=== PATIENT | male | born 1975 | race Caucasian/White ===

== ENCOUNTER 2018-09-18 10:01 | Emergency (ER) | payer SELFPAY ==
[~2018-09-18] VITALS: Ht 172.7 cm; Wt 93.6 kg
[2018-09-18 10:02] VITALS: Ht 172.7 cm; Wt 93.6 kg
[2018-09-18] MEDS ORDERED: CEFAZOLIN 1 GM INJ IM ONE (10:30)
[2018-09-18] MEDS ORDERED: LIDOCAINE 1% (MDV) 20 ML INJ SC ONE (10:30)
[2018-09-18] MEDS ORDERED: ONDANSETRON (ODT) 4 MG TAB ODT STA (10:49)
[2018-09-18] MEDS ORDERED: HYDROCODONE/APAP (5/325) TAB PO ONE (11:00)
[2018-09-18] MEDS ORDERED: NAPR-985 PO (11:44)
[2018-09-18] MEDS ORDERED: CEPH-443 PO (11:44)
[2018-09-18] MEDS ORDERED: HYDR-4011 PO (11:44)
--- NOTE | 2018-09-18 11:54 | ERD ---
ER Documentation Chief Complaint Chief Complaint LEFT THUMB AMPUTATION TODAY WITH METAL HPI 42-year-old male presenting with a thumb amputation to the distal tip of the left thumb. 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 He is right-hand dominant. Last tetanus shot was a year ago. Denies any numbness or tingling. Denies other medical problems. NKDA. Surgical history denies. Social history denies ROS All systems reviewed and are negative except as per history of present illness. Medications Home Meds Active Scripts Naproxen* (Naprosyn*) 500 Mg Tablet, 500 MG PO BID PRN for PAIN AND/OR INFLAMMATION, #30 TAB Prov:MARICEL MOORE PA-C 09/18/18 Hydrocodone/Acetaminophen ([place] 5-325 Tablet) 1 Each Tablet, 1 TAB PO Q6H PRN for PAIN, #7 TAB Prov:MARICEL MOORE PA-C 09/18/18 Cephalexin* (Keflex*) 500 Mg Capsule, 500 MG PO QID for 7 Days, CAP Prov:MARICEL MOORE PA-C 09/18/18 Allergies Allergies: Coded Allergies: No Known Allergy (Unverified , 09/18/18) PMhx/Soc Medical and Surgical Hx: pt denies Medical Hx, pt denies Surgical Hx Hx Alcohol Use: Yes (SOCIAL) Hx Substance Use: No Hx Tobacco Use: No Smoking Status: Never smoker FmHx Family History: No diabetes, No coronary disease, No other Physical Exam Vitals Vital Signs Date Temp Pulse Resp B/P (MAP) Pulse Ox O2 O2 Flow FiO2 Time Delivery Rate 09/18/18 97.2 87 18 160/96 99 10:02 (117) Physical Exam GENERAL: The patient is well-appearing, well-nourished, in no acute distress CHEST: Clear to auscultation bilaterally. There are no rales, wheezes or rhonchi. HEART: Regular rate and rhythm. No murmurs, clicks, rubs or gallops. EXTREMITIES: Equal pulses bilaterally. Full range of motion. Grossly neurovascularly intact. NEUROLOGIC: Alert and oriented. Cranial nerves II through XII intact. Motor strength in all 4 extremities with 5 out of 5 strength. Sensation grossly intact. Normal speech and gait. SKIN: Distal tip avulsion noted of the left thumb with last third of fingernail avulsed. Results 24 hrs Current Medications Medications Dose Sig/Shandra Start Time Status Last (Trade) Ordered Route PRN Stop Time Admin Dose Reason Admin Lidocaine 20 ml ONCE ONCE 09/18/18 DC (Xylocaine SC 10:30 1% (Mdv) 20 09/18/18 10:31 ml) Cefazolin 1 gm ONCE ONCE 09/18/18 DC 09/18/18 Sodium IM 10:30 11:20 (Ancef) 09/18/18 10:31 1 tab ONCE ONCE 09/18/18 DC 09/18/18 Acetaminophen PO 11:00 11:21 / 09/18/18 11:01 Hydrocodone Bitart ([place] (5/325)) Ondansetron 4 mg ONCE STAT 09/18/18 DC 09/18/18 HCl (Zofran ODT 10:49 11:20 Odt) 09/18/18 10:50 Procedures/MDM DIAGNOSTIC IMAGING REPORT Patient: CHELSEY GODINEZ : 1975 Age: 42 Sex: M MR #: [id number] DOS: 09/18/18 1025 Ordering MD: MARTA MOORE PA-C Location: [facility] Room/Bed: PROCEDURE: XR Finger. CLINICAL INDICATION: Trauma left first digit. TECHNIQUE: Three views of the finger are available for review. COMPARISON: None available FINDINGS: The bones are normally mineralized. There is an acute avulsion fracture involving the tuft of the left first distal phalanx. There is avulsion of the fingertip soft tissue. No evidence of joint space involvement. IMPRESSION: 1. Acute avulsion fracture involving the tuft of the left first distal phalanx and overlying fingertip soft tissue. ER course: IM injection of Ancef given in the ED. Oral [place] given. Zofran given. Laceration Repair by me: Anesthesia: 1% lidocaine locally Location: Left distal thumb Tendon/Joint/Nerves: No injury Foreign body: None detected after copious irrigation and exploration Technique: 4 4.0 N Simple Interrupted Sutures Complexity: No subcutaneous sutures/mucosal repair/edge excision Post Closure Length: 1 cm - finger tip avulsion Patient's bleeding was easily controlled in the department and there is no in dication of anemia. No evidence of compartment syndrome, neurologic injury, vascular injury, open joint, tendon laceration, or foreign body. Patient is appropriate for outpatient follow up. 48 hour wound check. Scar minimization instructions given. MDM: 42-year-old male presenting with fingertip avulsion. Patient had associated fracture noted. Patient's wound will be treated as open fracture. Patient will be discharged with supportive antibiotics and pain medication. I have low suspicion for tendon or ligament rupture. I have low suspicion for neuro deficit. Patient is discharged with supportive medications. Patient is told symptoms change or worsen to return to ER immediately. All questions answered at discharge Departure Diagnosis: Primary Impression: Avulsion of finger Condition: Stable Patient Instructions: Skin Avulsion Referrals: [facility] YOU HAVE RECEIVED A MEDICAL SCREENING EXAM AND THE RESULTS INDICATE THAT YOU DO NOT HAVE A CONDITION THAT REQUIRES URGENT TREATMENT IN THE EMERGENCY DEPARTMENT. FURTHER EVALUATION AND TREATMENT OF YOUR CONDITION CAN WAIT UNTIL YOU ARE SEEN IN YOUR DOCTORS OFFICE WITHIN THE NEXT 1-2 DAYS. IT IS YOUR RESPONSIBILITY TO MAKE AN APPOINTMENT FOR FOLOW-UP CARE. IF YOU HAVE A PRIMARY DOCTOR --you should call your primary doctor and schedule an appointment IF YOU DO NOT HAVE A PRIMARY DOCTOR YOU CAN CALL OUR PHYSICIAN REFERRAL HOTLINE AT IF YOU CAN NOT AFFORD TO SEE A PHYSICIAN YOU CAN CHOSE FROM THE FOLLOWING [facility] [address] [facility]. [facility] [address] [facility] [facility] [address] [facility] [facility] [address] [facility] [facility] [address] [facility]. [facility]. [address] Additional Instructions: FOLLOW UP WITH YOUR PRIMARY CARE PHYSICIAN TOMORROW.Return to this facility if you are not improving as expected. MARICEL MOORE PA-C Sep 18, 2018 11:54
[2018-09-18 12:37] VITALS: BP 132/78; PULSE 81; RESP 18
== END 2018-09-18 12:40 | disposition home or self-care (01) ==
LOC: FTE 10:01
DX: S61.012A Laceration without foreign body of left thumb without damage to nail, initial encounter (principal); W26.8XXA Contact with other sharp object(s), not elsewhere classified, initial encounter; Y92.69 Other specified industrial and construction area as the place of occurrence of the external cause
CPT/HCPCS: 12001; 73140; 96372; 99284; J0690

== ENCOUNTER 2018-09-20 16:23 | Emergency (ER) | payer MEDICAID ==
[~2018-09-20] VITALS: Ht 182.9 cm; Wt 70.0 kg
[~2018-09-20 16:23] MED LIST: CEPH-443 PO; HYDR-4011 PO; NAPR-985 PO
[2018-09-20 16:41] VITALS: Ht 182.9 cm; Wt 70.0 kg
--- NOTE | 2018-09-20 20:01 | ERD ---
ER Documentation Chief Complaint Chief Complaint recheck on left thumb laceration HPI This is a 42-year-old male who presents to the ED for a wound check status post laceration repair of his left thumb 2 days ago. 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 He had an associated open fracture and was therefore seen here. He was treated with Ancef, pain medications, and the laceration was repaired with sutures. Patient states his wound is healing well. He denies any increasing pain, discharge, fevers, chills. Denies any numbness, tingling, focal weakness. No new injuries. No other complaints. ROS All systems reviewed and are negative except as per history of present illness. Medications Home Meds Active Scripts Naproxen* (Naprosyn*) 500 Mg Tablet, 500 MG PO BID PRN for PAIN AND/OR INFLAMMATION, #30 TAB Prov:MARICEL MOORE PA-C 09/18/18 Hydrocodone/Acetaminophen ([place] 5-325 Tablet) 1 Each Tablet, 1 TAB PO Q6H PRN for PAIN, #7 TAB Prov:MARICEL MOORE PA-C 09/18/18 Cephalexin* (Keflex*) 500 Mg Capsule, 500 MG PO QID for 7 Days, CAP Prov:MARICEL MOORE PA-C 09/18/18 Allergies Allergies: Coded Allergies: No Known Allergy (Unverified , 09/18/18) PMhx/Soc Medical and Surgical Hx: pt denies Surgical Hx History of Surgery: No Anesthesia Reaction: No Hx Neurological Disorder: No Hx Respiratory Disorders: No Hx Cardiac Disorders: No Hx Psychiatric Problems: No Hx Miscellaneous Medical Probl: Yes (L Thumb Avulsion) Hx Alcohol Use: Yes (Social) Hx Substance Use: No Hx Tobacco Use: No Smoking Status: Never smoker Physical Exam Vitals Vital Signs Date Temp Pulse Resp B/P (MAP) Pulse Ox O2 O2 Flow FiO2 Time Delivery Rate 09/20/18 98.3 87 18 136/75 98 16:41 (95) Physical Exam Const: No acute distress Head: Atraumatic Eyes: Normal Conjunctiva ENT: Normal External Ears, Nose and Mouth. Neck: Full range of motion. No meningismus. Skin: No petechiae or rashes Ext: + Distal tip of the left thumb and distal third of nail plate with [address], healing well. No signs of infection. Neur: Awake and alert Psych: Normal Mood and Affect Procedures/MDM 42-year-old male presents today for wound recheck of the left thumb avulsion fracture which was repaired 2 days ago. Wound is healing well. No signs of ischemic necrosis, abscess, sepsis or other deep space infection. Wound was covered and dry gauze and placed in a finger splint. I recommended suture removal in 7 days and work restrictions for the next few days, work note was provided. Pt is stable for outpatient follow up and management. Strict return precautions given. Blood Pressure Assessment: Patient's blood pressure was elevated (>120/80) but appears stable without evidence of hypertension emergency or urgency. The patient was counseled about the risks of hypertension and urged to pursue outpatient monitoring and therapy within a week with their primary care physician. Departure Diagnosis: Primary Impression: Encounter for wound re-check Additional Impression: Avulsion fracture of left thumb Encounter type: subsequent encounter Fracture type: open Fracture healing: with routine healing Qualified Codes: S62.502D - Fracture of unsp ecified phalanx of left thumb, subsequent encounter for fracture with routine healing Condition: Stable Patient Instructions: Wound Care [facility] Additional Instructions: Sutures can be removed another 7 days. Continue taking medications as needed. Follow-up with your regular doctor otherwise return here for any new or worsening symptoms. SAIRA MARTIN PA-C Sep 20, 2018 20:01
[2018-09-20 20:26] VITALS: BP 125/74; PULSE 60; RESP 18
== END 2018-09-20 20:26 | disposition home or self-care (01) ==
LOC: FTE 16:23
DX: S62.502D Fracture of unspecified phalanx of left thumb, subsequent encounter for fracture with routine healing (principal); X58.XXXD Exposure to other specified factors, subsequent encounter
CPT/HCPCS: 29125; Z7502